=== PATIENT | female | born 1955 | race Caucasian/White ===

== ENCOUNTER → 2019-12-31 | Outpatient (CLI) | payer OTHER ==
[2019-12-31 15:11] LABS: BASOPHILS ABSOLUTE AUTO 0.02 K/mm3 (0.00-0.23); BASOPHILS PERCENT AUTO 0 % (0-2); EOSINOPHILS ABSOLUTE AUTO 0.19 K/mm3 (0.00-0.68); EOSINOPHILS PERCENT AUTO 3 % (0-6); Hematocrit 34.6 % (33.0-51.0); IMMATURE GRAN ABSOLUTE AUTO 0.03 K/mm3 (0.00-0.10); IMMATURE GRAN PERCENT AUTO 0 % (0-1); LYMPHOCYTES ABSOLUTE AUTO 2.14 K/mm3 (0.84-5.20); LYMPHOCYTES PERCENT AUTO 30 % (21-46); MONOCYTES ABSOLUTE AUTO 0.81 K/mm3 (0.16-1.47); MONOCYTES PERCENT AUTO 11 % (4-13); Mean Corpuscular HGB Conc 34.7 g/dL (31.5-36.5); Mean Corpuscular Volume 95 fL (80-100); Mean Platelet Volume 9.9 fL (9.1-12.4); NEUTROPHILS ABSOLUTE AUTO 3.98 K/mm3 (1.96-9.15); NEUTROPHILS PERCENT AUTO 56 % (41-73); Platelet Count 249 K/mm3 (150-400); RDW Coefficient Variation 12.2 % (11.7-14.2); RDW Standard Deviation 42.5 fL (35.1-46.3); Red Blood Cell Count 3.64 M/mm3 (3.80-5.20); White Blood Cell Count 7.17 K/mm3 (4.00-11.30)
[2019-12-31 15:20] LABS: Alanine Aminotransfer (ALT/SGP 36 U/L (12-78); Albumin, Blood 3.1 g/dL (3.4-5.0); Albumin/Globulin Ratio 0.8 (0.8-1.8); Alk Phos 98 U/L (50-136); Anion Gap 8 mmol/L (6-16); Aspartate Aminotrans (AST/SGOT 29 U/L (12-37); Bilirubin, Total 0.5 mg/dL (0.1-1.0); Blood Urea Nitrogen 8 mg/dL (8-24); Bun/Creatinine Ratio 12.3 (12.0-20.0); CO2, Blood 23 mmol/L (21-32); Calcium, Blood 8.6 mg/dL (8.5-10.1); Chloride, Blood 109 mmol/L (98-108); Creatinine, Blood 0.65 mg/dL (0.40-1.00); Glomerular Filtration Rate >60 (60-); Glucose, Blood 123 mg/dL (70-99); Potassium, Blood 3.3 mmol/L (3.5-5.5); Sodium, Blood 140 mmol/L (136-145); Total Protein, Blood 7.1 g/dL (6.4-8.2)
== END | disposition home or self-care (01) ==
LOC: LAB 13:35 → LAB SHORT 13:35
PROVIDERS: Nurse Practitioner
DX: R10.9 Unspecified abdominal pain (principal)
CPT/HCPCS: 80053; 83690; 85025

== ENCOUNTER 2021-02-11 20:59 | Inpatient (IN) | payer OTHER ==
[~2021-02-11] VITALS: Ht 160 cm; Wt 79.2 kg
[2021-02-11 21:25] LABS: BASOPHILS ABSOLUTE AUTO 0.03 K/mm3 (0.00-0.23); BASOPHILS PERCENT AUTO 0 % (0-2); EOSINOPHILS ABSOLUTE AUTO 0.37 K/mm3 (0.00-0.68); EOSINOPHILS PERCENT AUTO 5 % (0-6); Hematocrit 37.2 % (33.0-51.0); Hemoglobin 12.7 g/dL (11.5-16.0); IMMATURE GRAN ABSOLUTE AUTO 0.02 K/mm3 (0.00-0.10); IMMATURE GRAN PERCENT AUTO 0 % (0-1); LYMPHOCYTES ABSOLUTE AUTO 3.41 K/mm3 (0.84-5.20); LYMPHOCYTES PERCENT AUTO 47 % (21-46); MONOCYTES PERCENT AUTO 7 % (4-13); Mean Corpuscular HGB 31.3 pg (26.0-34.0); Mean Corpuscular HGB Conc 34.1 g/dL (31.5-36.5); Mean Corpuscular Volume 92 fL (80-100); Mean Platelet Volume 10.5 fL (9.1-12.4); NEUTROPHILS ABSOLUTE AUTO 2.99 K/mm3 (1.96-9.15); NEUTROPHILS PERCENT AUTO 41 % (41-73); Platelet Count 203 K/mm3 (150-400); RDW Coefficient Variation 12.6 % (11.7-14.2); RDW Standard Deviation 42.2 fL (35.1-46.3); Red Blood Cell Count 4.06 M/mm3 (3.80-5.20); White Blood Cell Count 7.32 K/mm3 (4.00-11.30)
[2021-02-11 21:43] LABS: Alanine Aminotransfer (ALT/SGP 60 U/L (12-78); Albumin, Blood 3.8 g/dL (3.4-5.0); Albumin/Globulin Ratio 1.2 (0.8-1.8); Alk Phos 112 U/L (50-136); Anion Gap 6 mmol/L (6-16); Aspartate Aminotrans (AST/SGOT 47 U/L (12-37); Bilirubin, Total 0.4 mg/dL (0.1-1.0); Blood Urea Nitrogen 13 mg/dL (8-24); Bun/Creatinine Ratio 17.3 (12.0-20.0); CO2, Blood 26 mmol/L (21-32); Calcium, Blood 8.9 mg/dL (8.5-10.1); Chloride, Blood 110 mmol/L (98-108); Creatinine, Blood 0.75 mg/dL (0.40-1.00); Globulin, Blood 3.2 g/dL (2.2-4.0); Glomerular Filtration Rate >60 (60-); Glucose, Blood 136 mg/dL (70-99); Potassium, Blood 3.5 mmol/L (3.5-5.5); Sodium, Blood 142 mmol/L (136-145); Troponin I 0.055 ng/mL (0.000-0.040)
--- NOTE | 2021-02-12 01:13 | NUR ---
PATIENT ARRIVED ON UNIT VIA GURNEY, ABLE TO TRANSFER TO BED WITH STAND BY ASSIST, DAUGHTER SHAYE WITH PATIENT, ALERT AND ORIENTATED ABLE TO MAKE NEEDS KNOWN, ORIENTATED TO THE ROOM, SAFETY MEASURES ABLE TO DEMONSTRATE BACK, CONTINENT OF URINE. ORTHOSTATIC COMPLETED, LYING 137/76 HR 68 ASYMPTOMATIC, SITTING 159/81 HR 66 ASYMPTOMATIC, STANDING 140/74 HR 69 PATIENT C/O LIGHTHEADED UNABLE TO TOLERATE STANDING FOR MORE THAN A COUPLE OF MINUTES TO DO A FIVE MINUTE SECOND STAND CHECK. NOTED FACIAL TRAUMA FROM WITNESSED FALL PICTURES ARE IN THE CHART, NO C/O OF PAIN PATIENT REPORTS JUST SORE, PATIEN REPORTED THAT HER TOP DENTURES WERE BROKEN AND NO TRAUMA WITHIN THE MOUTHE, PATIENT ALSO VERY SELF CONCSIOUS WITHOUT HER DENTURES AND PREFERS TO WEAR A MASK WHEN STAFF ENTERS THE ROOM. PATIENT IS CURRENTLY RESTING IN BED, NEURO ASSESSMENT COMPLETED NOTED RIGHT EYE MORE SLUGGISH THAN THE LEFT, DIAGNOSTICS WERE COMPLETE IN ED AND RESULTS IN PAPERCHART PRIOR TO ADMISSION TO UNIT.
--- NOTE | 2021-02-12 05:44 | NUR ---
PATIENT AT 0457 C/O 8/10-5/10 MIDSTERNAL CHEST PAIN, GRIPPING WITH GI UPSET. RECEIVED NO EKG, AND NITRO NO RELIEF GIVE PATIENT FENTANYL PATIENT RECEIVED LITTLE RELIEF AND BEGAN COMPLAINING OF CERRATO+ 5/10, BLURRED VISION, L HAND NUMBNESS, PUPILS EQUAL AND REACTIVE, EQUAL PUMP INSTALLATION AND SERVICER PUSHES AND PULLS, NO DRIFTS ALL EXTREMITIES, GAVE FENTANYL 25MEQ IN RAC IVP, PATIENT REPORTS 0/10 PAIN, TROPONIN IS ELEVATED FROM 0.055 TO 0.160, SECOND 20 GAUGE IV INSERTED IN THE LEFT HAND.
[2021-02-12 07:30] LABS: International Normalized Ratio 1.02
[2021-02-12 09:01] LABS: SARS-Cov-2 (COVID-19) PCR, MMC NEGATIVE (NEGATIVE)
[2021-02-12 10:09] LABS: CHOL/HDL RATIO 5.4; Cholesterol 217 mg/dL (50-200); HDL Cholesterol 40 mg/dL (>39); LDL/HDL RATIO 3.8; Low Density Lipoprotein Chol 153 mg/dL (0-110); Triglycerides 122 mg/dL (30-160); Very Low Density Lipoprot Chol 24 mg/dL (6-32)
--- NOTE | 2021-02-12 11:08 | NUR ---
[facility], ANGIOGRAM PT LEFT FOR ANGIOGRAM THIS MORNING AT APPROXIMATELY 0930. PT RETURNED AT APPROXIMATELY 1050. PT HAD NO STENTS, NO BLOCKAGE THAT NEEDED TO BE CLEARED. PT DOES HAVE A VALVE THAT NEEDS TO BE REPLACED AND THEREFORE SHE WILL NEED TO BE TRANSFERRED. PT HAS TR BAND ON THE RIGHT RADIAL AND ARM BOARD IN PLACE. NO DRAINAGE, NO SIGN OF HEMATOMA AT THIS TIME. PT DENIES CP AND SOB. VS STABLE, PT ON RA.
--- NOTE | 2021-02-12 13:22 | NUR ---
TR BAND PT HAS TR BAND IN PLACE ON RIGHT RADIAL SITE FOLLOWING ANGIOGRAM. NO DRAINAGE, NO SIGN OF HEMATOMA, STRONG RADIAL PULSE AND SENSATION IN THE FINGERS. 3ML AIR WAS PULLED FROM THE TR BAND AT APPROXIMATELY 1315
--- NOTE | 2021-02-12 13:42 | NUR ---
TR BAND PT HAD A SCANT AMOUNT OF DRAINAGE FROM THE RADIAL SITE ON THE RIGHT WRIST. THE 3ML THAT WAS PREVIOUSLY TAKEN OUT OF THE TR BAND WAS PUT BACK INTO THE SITE.
--- NOTE | 2021-02-12 16:00 | NUR ---
TR BAND REMOVED AT APPROXIMATELY 1550. NO ADDITIONAL DRAINAGE AFTER ADDING AIR BACK TO THE BAND EARLIER TODAY. NO HEMATOMA, STRONG PULSE AND FULL SENSATION IN THE FINGERS. TEGADERM IN PLACE ON THE WRIST, ARM BOARD IN PLACE WELL. PT HAS BEEN REMINDED NOT TO USE THE ARM MUCH, NO BENDING AT THE WRIST, PUSHING OR PULLING.
--- NOTE | 2021-02-12 16:38 | NUR ---
TRANSFER TO PCU PT WAS TRANSFERRED TO PCU AT APPROXIMATELY 1625. REPORT GIVEN TO Kiki NUNEZ RN. PT WALKED INDEPENDENTLY FROM ICU TO PCU. VS STABLE UPON TRANSFER. PT IS RESTING IN HER NEW ROOM AT THIS TIME
--- NOTE | 2021-02-12 18:02 | NUR ---
NO ACUTE EVENTS SINCE TRANSFER TO UNIT FROM ICU, VSS. PT ON ROOM AIR, TOLERATING WELL. NO SIGNS OF ACUTE DISTRESS, PT DENIES PAIN/DISCOMFORT. BED IN LOW POSITION, CALL ALARM WITHIN REACH.
--- NOTE | 2021-02-13 05:24 | NUR ---
shift summary pt rested well through the night. alert and oriented, able to make needs known. cooperative with plan of care. sats >90% on room air. tele nsr. no c/o pain. stand by assist to the bathroom/ambulating around unit. voiding. vss. call light within reach, bed in lowest position. will continue to monitor.
[2021-02-13 06:39] LABS: BASOPHILS ABSOLUTE AUTO 0.04 K/mm3 (0.00-0.23); BASOPHILS PERCENT AUTO 1 % (0-2); EOSINOPHILS ABSOLUTE AUTO 0.32 K/mm3 (0.00-0.68); EOSINOPHILS PERCENT AUTO 4 % (0-6); Hematocrit 39.4 % (33.0-51.0); Hemoglobin 13.5 g/dL (11.5-16.0); IMMATURE GRAN ABSOLUTE AUTO 0.02 K/mm3 (0.00-0.10); IMMATURE GRAN PERCENT AUTO 0 % (0-1); LYMPHOCYTES ABSOLUTE AUTO 2.83 K/mm3 (0.84-5.20); LYMPHOCYTES PERCENT AUTO 32 % (21-46); MONOCYTES ABSOLUTE AUTO 0.65 K/mm3 (0.16-1.47); MONOCYTES PERCENT AUTO 7 % (4-13); Mean Corpuscular HGB Conc 34.3 g/dL (31.5-36.5); Mean Corpuscular Volume 93 fL (80-100); Mean Platelet Volume 10.5 fL (9.1-12.4); NEUTROPHILS ABSOLUTE AUTO 4.87 K/mm3 (1.96-9.15); NEUTROPHILS PERCENT AUTO 56 % (41-73); Platelet Count 207 K/mm3 (150-400); RDW Coefficient Variation 12.6 % (11.7-14.2); RDW Standard Deviation 43.6 fL (35.1-46.3); Red Blood Cell Count 4.22 M/mm3 (3.80-5.20); White Blood Cell Count 8.73 K/mm3 (4.00-11.30)
[2021-02-13 07:11] LABS: Anion Gap 5 mmol/L (6-16); Blood Urea Nitrogen 9 mg/dL (8-24); Bun/Creatinine Ratio 13.1 (12.0-20.0); CO2, Blood 25 mmol/L (21-32); Calcium, Blood 8.8 mg/dL (8.5-10.1); Chloride, Blood 113 mmol/L (98-108); Creatinine, Blood 0.69 mg/dL (0.40-1.00); Glomerular Filtration Rate >60 (60-); Glucose, Blood 111 mg/dL (70-99); Potassium, Blood 3.8 mmol/L (3.5-5.5); Sodium, Blood 143 mmol/L (136-145)
--- NOTE | 2021-02-13 17:11 | NUR ---
NO ACUTE EVENTS THIS SHIFT, VSS. PT ALERT AND ORIENTED, INDEPENDENT IN ROOM. DENIES CHEST PAIN THIS SHIFT. NO DISCHARGE NOTED FROM R. RADIAL SITE, ARMBOARD IN PLACE. REPORT GIVEN TO OLGA FLORES AT [facility].
== END 2021-02-13 17:41 | disposition short-term general hospital (02) | DRG 287 ==
LOC: ER 20:59 → ICUW 21:00 → ICUE 21:00 → ER 21:00 → ICUW 23:59 → ICUE 23:59 → PCU 02-12 13:30 → ICUE 02-12 13:31 → PCU 02-12 14:52 → ICUE 02-12 16:31 → PCU 02-12 18:09 → ICUE 02-12 18:09 → PCU 02-12 18:09
PROVIDERS: Internal Medicine Cardiovascular Disease; Physician Assistant; ADMIT Internal Medicine
PROC: 4A023N8 Measurement of Cardiac Sampling and Pressure, Bilateral, Percutaneous Approach (ICD-10-PCS; principal; 2021-02-13)
PROC: B2111ZZ Fluoroscopy of Multiple Coronary Arteries using Low Osmolar Contrast (ICD-10-PCS; 2021-02-13)
DX: I35.0 Nonrheumatic aortic (valve) stenosis (principal); I24.8 Other forms of acute ischemic heart disease; I47.1 Supraventricular tachycardia; Z20.822 Contact with and (suspected) exposure to COVID-19; S09.90XA Unspecified injury of head, initial encounter; E66.9 Obesity, unspecified; E78.5 Hyperlipidemia, unspecified; Z85.41 Personal history of malignant neoplasm of cervix uteri; Z68.30 Body mass index [BMI] 30.0-30.9, adult; Z87.891 Personal history of nicotine dependence; W19.XXXA Unspecified fall, initial encounter
CPT/HCPCS: 36415; 70450; 71046; 72125; 76937; 80048; 80053; 80061; 83880; 84484; 85025; 85610; 85730; 93005; 93010; 93306; 93456; 93880; 96374; 99152; 99285-25; A9270; C1769; C1894; G0378; J0461; J1644; J2250; J2370; J2405; J3010; J7030; Q9967; U0004

== ENCOUNTER → 2024-08-07 | Outpatient (CLI) | payer OTHER ==
[2024-08-07 11:00] LABS: BASOPHILS ABSOLUTE AUTO 0.03 K/mm3 (0.00-0.23); BASOPHILS PERCENT AUTO 0 % (0-2); EOSINOPHILS PERCENT AUTO 3 % (0-6); Hematocrit 41.5 % (33.0-51.0); Hemoglobin 14.2 g/dL (11.5-16.0); IMMATURE GRAN ABSOLUTE AUTO 0.02 K/mm3 (0.00-0.10); IMMATURE GRAN PERCENT AUTO 0 % (0-1); LYMPHOCYTES ABSOLUTE AUTO 2.97 K/mm3 (0.84-5.20); LYMPHOCYTES PERCENT AUTO 37 % (21-46); MONOCYTES ABSOLUTE AUTO 0.55 K/mm3 (0.16-1.47); MONOCYTES PERCENT AUTO 7 % (4-13); Mean Corpuscular HGB 31.4 pg (26.0-34.0); Mean Corpuscular HGB Conc 34.2 g/dL (31.5-36.5); Mean Corpuscular Volume 92 fL (80-100); Mean Platelet Volume 9.8 fL (9.1-12.4); NEUTROPHILS PERCENT AUTO 53 % (41-73); Platelet Count 214 K/mm3 (150-400); RDW Coefficient Variation 12.5 % (11.7-14.2); RDW Standard Deviation 42.2 fL (35.1-46.3); Red Blood Cell Count 4.52 M/mm3 (3.80-5.20); White Blood Cell Count 7.97 K/mm3 (4.00-11.30)
[2024-08-07 11:11] LABS: Albumin, Blood 4.2 g/dL (3.4-5.0); Albumin/Globulin Ratio 1.1 (0.8-1.8); Bilirubin, Total 0.8 mg/dL (0.1-1.0); Bun/Creatinine Ratio 18.1 (12.0-20.0); Calcium, Blood 9.2 mg/dL (8.5-10.1); Creatinine, Blood 0.83 mg/dL (0.40-1.00); Globulin, Blood 3.7 g/dL (2.2-4.0); Total Protein, Blood 7.9 g/dL (6.4-8.2)
== END ==
LOC: LAB 10:45 → LAB SHORT 10:45
PROVIDERS: Physician Assistant
DX: R82.81 Pyuria (principal); R10.9 Unspecified abdominal pain
CPT/HCPCS: 80053; 83690; 85025; 87086

== ENCOUNTER 2024-12-08 08:44 | Day surgery (SDC) | payer OTHER ==
[~2024-12-08] VITALS: Ht 160 cm; Wt 79.5 kg
[2024-12-08] MEDS ORDERED: METOPROLOL SUCC25 MG PO (09:26)
[2024-12-08] MEDS ORDERED: PANTOPRAZOLE SO40 M2 PO (09:26)
[2024-12-08] MEDS ORDERED: ZOLOFT25 MG PO (09:27)
[2024-12-08] MEDS ORDERED: Aspir 8181 MG PO (09:27)
[2024-12-08] MEDS ORDERED: Lactated Ringer's 1,000 ML IV ONE ×2 (09:50→10:03)
[2024-12-08] MEDS ORDERED: FentaNYL Citrate 50 MCG/ML 2 ML Injection ONE (10:40)
[2024-12-08] MEDS ORDERED: propofoL 20 ML IV ONE (10:40)
[2024-12-08] MEDS ORDERED: Dexamethasone Sod Phos 10 MG/ML 1ML VIAL ONE (10:44)
[2024-12-08] MEDS ORDERED: Ondansetron HCl 2 MG / ML 2ML Vial ONE (10:44)
[2024-12-08] MEDS ORDERED: Midazolam HCl 1MG / ML 2ML Vial ONE (11:18)
[2024-12-08] MEDS ORDERED: ePHEDrine Sulfate 50 MG/ML 1ML Injection ONE (11:31)
--- NOTE | 2024-12-08 11:41 | NUR ---
12/08/[address] [place] FLUID DEFICIT OF 250ML
[2024-12-08 12:30] VITALS: BP 123/88
== END 2024-12-08 12:47 | disposition home or self-care (01) ==
LOC: ORSCSDS 08:44
PROVIDERS: Obstetrics & Gynecology
PROC: 0UDB8ZZ Extraction of Endometrium, Via Natural or Artificial Opening Endoscopic (ICD-10-PCS; principal; 2024-12-08 10:30)
DX: R93.89 Abnormal findings on diagnostic imaging of other specified body structures (principal); N84.0 Polyp of corpus uteri; I10 Essential (primary) hypertension; I25.10 Atherosclerotic heart disease of native coronary artery without angina pectoris; I48.91 Unspecified atrial fibrillation; F17.210 Nicotine dependence, cigarettes, uncomplicated; K21.9 Gastro-esophageal reflux disease without esophagitis; Z79.899 Other long term (current) drug therapy; Z79.82 Long term (current) use of aspirin
CPT/HCPCS: 88305; J1100; J2250; J2405; J2704; J3010; J7120

== ENCOUNTER → 2025-02-06 | Outpatient (CLI) | payer OTHER ==
[~2025-02-06] MED LIST: Aspir 8181 MG PO; METOPROLOL SUCC25 MG PO; PANTOPRAZOLE SO40 M2 PO; ZOLOFT25 MG PO
[2025-02-06 17:26] LABS: Source, Urine Clean Catch
[2025-02-06 19:28] LABS: Bilirubin, Urine Neg (Neg); Color, Urine Yellow (P-Yellow); Glucose Qualitative, Urine Neg (Neg); Ketones, Urine Neg (Neg); Leukocyte Esterase, Urine 1+ (Neg); Protein, Urine Neg (Neg); Specific Gravity, Urine 1.025 (1.003-1.022); Urobilinogen, Urine NORM (Normal)
[2025-02-06 20:15] LABS: Red Blood Cells, Urine 0-2 /hpf (0-2)
== END ==
LOC: LAB SHORT 17:25 → LAB 17:25
PROVIDERS: Obstetrics & Gynecology
DX: Z01.812 Encounter for preprocedural laboratory examination (principal)
CPT/HCPCS: 81001; 87077; 87086

== ENCOUNTER 2025-02-12 09:06 | Day surgery (SDC) | payer OTHER ==
[~2025-02-12] VITALS: Ht 158 cm; Wt 81.2 kg
[2025-02-12] VITALS (14 sets, daily range): BP systolic 93–144; BP diastolic 50–86
[~2025-02-12 09:06] MED LIST changes: +CeFAZolin Sodium 2,000 MG in NS 100 ML IV SCH; +Dexamethasone Sod Phos 10 MG/ML 1ML VIAL ONE; +FentaNYL Citrate 50 MCG/ML 5 ML Injection ONE; +Ketorolac Tromethamine 30mg Vial ONE; +Ondansetron HCl 2 MG / ML 2ML Vial ONE; +Rocuronium Bromide 10 MG/ML 5ML Injection IV ONE
[2025-02-12] MEDS ORDERED: Nitrofurantoin100 M1 PO (09:46)
--- NOTE | 2025-02-12 10:49 | NUR ---
History, Chart, Medications and Allergies reviewed before start of procedure. Patient up to Ambulate independently. Gait steady. Pre-Op teaching done. Pt verbalizes understanding. Patient confirms NPO status and agrees with scheduled surgery. Patient reports completing Chlorhexadine shower X2 prior to admission to hospital. Surgical site prepped with 2% Chlorhexidine cloth wipe. Patient States Post-Procedure ride home has been arranged.
[2025-02-12] MEDS ORDERED: Bupivacaine 0.25% Epi 1:200000 30 ML Vial ONE (11:33)
[2025-02-12] MEDS ORDERED: HYDROmorphone HCl/Pf 1MG SYR IV PRN ×2 (12:15→12:20)
[2025-02-12] MEDS ORDERED: FentaNYL Citrate 50 MCG/ML 2 ML Injection IV PRN ×2 (12:15→15:45)
[2025-02-12] MEDS ORDERED: Ondansetron HCl 2 MG / ML 2ML Vial IV PRN ×2 (12:20→15:45)
[2025-02-12] MEDS ORDERED: Metoclopramide HCl 5MG / ML 2ML Vial IV PRN (12:20)
[2025-02-12] MEDS ORDERED: Labetalol HCL 5 MG/ML 4ML Injection (Single Dose) IV PRN (12:20)
[2025-02-12] MEDS ORDERED: Albuterol 2.5 MG/3 ML VIAL INH PRN (12:25)
[2025-02-12] MEDS ORDERED: Ketorolac Tromethamine 15mg Vial IV PRN (12:30)
[2025-02-12] MEDS ORDERED: Sugammadex Sodium 200 MG/2ML SDV (100 MG/ML) ONE (13:55)
[2025-02-12] MEDS ORDERED: Metoclopramide HCl 5MG / ML 2ML Vial ONE (14:36)
[2025-02-12] MEDS ORDERED: FentaNYL Citrate 50 MCG/ML 2 ML Injection ONE (14:38)
--- NOTE | 2025-02-12 17:47 | NUR ---
VOID: PT UP TO BATHROOM TO ATTEMPT TO VOID. PT HAD A FEW DROPS OF RED TINGES URINE BUT NOT ENOUGH TO MEASURE. ENCOURAGED PO INTAKE.
[2025-02-12] MEDS ORDERED: Ketorolac Tromethamine 30mg Vial IV SCH (18:00)
--- NOTE | 2025-02-12 18:55 | NUR ---
PT HAS BEEN STABLE POS OP. 4 INC CLEAN AND DRY WITH WOUND GLUE CLOSURE. EMANI PAD WITH RED SPOTTING. TOLERATING REGULAR DIET. ENCOURAGED PO FLUIDS. PAIN MANAGED WITH TYLENOL. PT RELUCTANT TO TAKE ROXICODONE. PT HAS NOT VOIDED SIGNIFICANT AMT YET POST OP. PLAN TO DC HOME TOMORROW PT IS SLIGHTLY NAUSEATED, HASNT VOIDED AND LIVES ALONE IN [place]AMP [place]. USES CALL LIGHT APPROPRIATELY NEEDED.
[2025-02-13 03:42] VITALS: BP 104/59
--- NOTE | 2025-02-13 04:56 | NUR ---
SHIFT SUMMARY NO ACUTE EVENTS OVERNIGHT. PT POD#1 ROBOTIC LAP HYSTERECTOMY. PT LAP SITES 4X CDI. PT HAD AMBULATED, TOLERATED PO MEDS/FOOD, HAS VOIDED AND PLANS TO HAVE SISTER ARRIVE FOR DISCHARGE AT APPROXIMATELY 0830 TODAY.
[2025-02-13 07:07] VITALS: BP 102/58
[2025-02-13] MEDS ORDERED: OXYC5 PO (07:50)
[2025-02-13] MEDS ORDERED: IBUP400 PO (07:50)
--- NOTE | 2025-02-13 08:22 | NUR ---
DISCHARGE PAIN WELL CONTROLLED. EATING, DRINKING, VOIDING. AMBULATING EASILY & DECLINES WC OUT. AMBULATES OUT w/ SISTER.
== END 2025-02-13 08:15 | disposition home or self-care (01) ==
LOC: ORSCMMR 09:06 → ORD 11:00 → SURS 15:00 → ORSCMMR 02-13 08:15
PROVIDERS: Obstetrics & Gynecology
PROC: 0UT0FZZ Resection of Right Ovary, Via Natural or Artificial Opening With Percutaneous Endoscopic Assistance (ICD-10-PCS; principal; 2025-02-12 11:00)
PROC: 0UT5FZZ Resection of Right Fallopian Tube, Via Natural or Artificial Opening With Percutaneous Endoscopic Assistance (ICD-10-PCS; principal; 2025-02-12 11:00)
PROC: 0UT9FZZ Resection of Uterus, Via Natural or Artificial Opening With Percutaneous Endoscopic Assistance (ICD-10-PCS; principal; 2025-02-12 11:00)
DX: D25.9 Leiomyoma of uterus, unspecified (principal); N80.03 Adenomyosis of the uterus; N83.291 Other ovarian cyst, right side; N73.6 Female pelvic peritoneal adhesions (postinfective); I10 Essential (primary) hypertension; E11.9 Type 2 diabetes mellitus without complications; K21.9 Gastro-esophageal reflux disease without esophagitis; E78.5 Hyperlipidemia, unspecified; I25.10 Atherosclerotic heart disease of native coronary artery without angina pectoris; Z87.891 Personal history of nicotine dependence; Z79.899 Other long term (current) drug therapy; E66.9 Obesity, unspecified; Z68.32 Body mass index [BMI] 32.0-32.9, adult
CPT/HCPCS: 82947; 86850; 86900; 86901; 88307; 94762; A9270; J0690; J1100; J1885; J2405; J2704; J2765; J3010; J7120